=== PATIENT | female | born 1990 | race Caucasian/White ===

== ENCOUNTER 2017-05-01 12:42 | Emergency (ER) | payer OTHER ==
[~2017-05-01] VITALS: Wt 90.2 kg
--- NOTE | 2017-05-01 15:07 | ERD ---
ER Documentation Chief Complaint Chief Complaint ANXIETY, SHIVERING, SOB, DENIES MEDICAL HISTORY HPI 26 YO female reports that she has been worried about " everything", money, kids , planning marriage. pt reports felling chills, than upper ABD, vomited, . pt reports vomiting 2 after. states that she e ate a yogurt shortly after felt epigastric pain and had to vomit. Pt is asymptomatic now. ROS All systems reviewed and are negative except as per history of present illness. Medications Home Meds Active Scripts Promethazine Hcl* (Phenergan*) 25 Mg Tablet, 25 MG PO Q6 Y for ANXIETY, #10 TAB Prov:ANAHY,DELTA 05/01/17 Ranitidine Hcl* (Zantac*) 150 Mg Tablet, 150 MG PO BID Y for EPIGASTRIC PAIN, # 30 TAB Prov:ANAHY,DELTA 05/01/17 Allergies Allergies: Coded Allergies: No Known Allergies (Verified Allergy, Mild, 03/13/10) PMhx/Soc History of Surgery: No Anesthesia Reaction: No Hx Neurological Disorder: No Hx Respiratory Disorders: No Hx Cardiac Disorders: No Hx Psychiatric Problems: No Hx Miscellaneous Medical Probl: No Hx Alcohol Use: No Hx Substance Use: No Hx Tobacco Use: Yes Physical Exam Vitals Vital Signs Date Time Temp Pulse Resp B/P Pulse Ox O2 Delivery O2 Flow Rate FiO2 05/01/17 13:10 99.1 86 18 132/76 100 Physical Exam Const: Obese well-nourished well-hydrated well-appearing 26-year-old female no acute distress Eyes: Normal Conjunctiva, PERRLA, EOMI ENT: Tympanic membranes translucent, auditory canals are clear, nasal mucosa is moist, turbinates nonedematous, pharynx is pink, tonsils +2 without exudate, uvula midline without shift rises and falls with pronation, mucous membranes and tongue are moist. Neck: No cervical chain nodes Resp: Respirations even, and clear to auscultation bilaterally no rales wheezes or rhonchi Cardio: S1-S2, no S3-S4 regular rate and rhythm, no murmurs Abd: Soft, non tender, non distended. No epigastric tenderness Back: Pre-existing lumbar pain no change from baseline Ext: No cyanosis, or edema Neur: Awake and alert Psych: Normal Mood and Affect, patient's speech is clear, easy to follow, no flight of ideas, Procedures/MDM This 26-year-old female presents to emergency department along with her significant other for evaluation of a episode of shortness of breath and chest pain. Patient reports that symptoms started with epigastric pain that radiated up into her chest, she vomited, and then became short of breath. Patient reports that she has had 1 or 2 of these episodes in the last 24 hours. Denies history of gastroesophageal reflux disease, chest pain, or anxiety. Patient states she does worry a lot of the time, has never been diagnosed with a anxiety disorder. Patient reports he is asymptomatic at this time. Emergency room course includes history and physical exam which required 10-12 minutes discussing symptoms and reassuring patient and has no flu or upper respiratory syndrome symptoms. Patient will be treated today with Zantac for epigastric pain and given, I do not feel a EKG is necessary at this time patient is asymptomatic, afebrile with no upper respiratory syndrome symptoms. Plan to treat epigastric pain with Zantac, suspected anxiety symptoms with promethazine 25 mg 1 tab p.o. every 6 hours as needed, patient instructed to follow-up with primary care physician for full evaluation and routine health maintenance. Return to emergency room for worsening of current symptoms. Patient is stable with no new complaints during ER course, clinically there is no current evidence to suggest meningitis, sepsis, acute abdomen, acute coronary syndromes , pulmonary embolism or any other emergent condition appearing to require further evaluation or hospitalization. I feel the patient is stable for discharge at this time. I have discussed results, examination findings, the treatment plan with the patient and family present prior to discharge. Indications for emergent reevaluation, side effects of medication were also discussed. All questions were answered. Patient verbalizes understanding and agrees with plan of care. Departure Diagnosis: Primary Impression: Epigastric abdominal pain Additional Impressions: Vomiting Vomiting type: unspecified Vomiting Intractability: non-intractable Nausea presence: with nausea Qualified Code: R11.2 - Non-intractable vomiting with nausea, unspecified vomiting type Stress reaction Condition: Good Patient Instructions: Epigastric Pain (Uncertain Cause), Understanding Panic Disorder (Panic Attack) Additional Instructions: Thank you for for coming to [facility] for your care today. Please ask your nurse or provider if you have questions about your care today and do not leave until all your questions have been answered. Please use any medications given as directed and follow-up with your doctor (or the doctor you were referred to) in the next 2-3 days. If you do not have a primary care doctor you may follow up at the [facility] [place] (listed below). You may also use motrin and tylenol as needed for fever and/or pain unless instructed otherwise by your provider or nurse. Indications for more urgent follow-up have been discussed, but you may return to the Emergency Department at ANY time for any worrisome or worsening symptoms. If you have abdominal pain, please know that no test or exam you received is perfect and you should follow up within 8 hours for continued pain. If you had any imaging studies today, such as an X-Ray or CT Scan, these studies will be reviewed later by a radiologist. You will be called if there are important findings that were not identified today, so make sure the contact information you provided at registration is correct. If you received any narcotic pain control medicine today, such as Vicodin, Morphine or Dilaudid, your coordination and judgment may be affected for a number of hours. Please do not drive or operate heavy machinery, and you may want someone to assist you at home. If you were given a prescription for narcotic medication, be aware that it is very addictive- use sparingly and only if necessary. DELTA HIGGINBOTHAM May 01, 2017 15:07
[2017-05-01] MEDS ORDERED: PROM25TA14 PO (16:06)
[2017-05-01] MEDS ORDERED: RANI150T9 PO (16:06)
== END 2017-05-01 16:27 | disposition home or self-care (01) ==
LOC: FTE 12:42
DX: R10.13 Epigastric pain (principal); F43.0 Acute stress reaction; R11.10 Vomiting, unspecified; Z87.891 Personal history of nicotine dependence
CPT/HCPCS: 99283